=== PATIENT | female | born 1960 | race African-American/Black ===

== ENCOUNTER 2017-02-13 20:22 | Emergency (ER) | payer MEDICAID ==
[2017-02-13 20:53] LABS: BASOPHILS 0.2 % (0-2); EOSINOPHILS 4.3 % (0-7); HEMATOCRIT 38.8 % (36.0-48.0); HEMOGLOBIN 12.7 g/dL (12-16); IMMATURE GRANULOCYTES 0.2 % (0-5); LYMPHOCYTES 44.5 % (15-50); MCH 27.4 pg (26.0-34.0); MCHC 32.7 g/dL (31.0-37.0); MCV 83.6 fL (80.0-100.0); MEAN PLATELET VOLUME 9.4 fL (7.4-10.4); MONOCYTES 7.6 % (2-11); NEUTROPHILS 43.2 % (40-80); PLATELET COUNT 231 10x3/uL (130-400); RBC 4.64 10x6/uL (4.00-5.40); RDW 12.8 % (11.5-14.5); WBC 4.5 10x3/uL (4.8-10.8)
[2017-02-13 21:10] LABS: ALBUMIN 3.7 g/dL (3.4-5.0); ALKALINE PHOSPHATASE 87 U/L (46-116); ALT (SGPT) 29 U/L (10-68); CALC OSMOLALITY 276 mosm/kg (275-300); CALCIUM 8.9 mg/dL (8.5-10.1); CARBON DIOXIDE 29.9 mmol/L (21.0-32.0); CHLORIDE - SERUM 105 mmol/L (98-107); CREATININE - SERUM 0.9 mg/dL (0.6-1.3); GLUCOSE 93 mg/dL (74-106); POTASSIUM - SERUM 3.9 mmol/L (3.5-5.1); PROTEIN - SERUM 7.2 g/dL (6.4-8.2); SODIUM 139 mmol/L (136-145); UREA NITROGEN 11 mg/dL (7-18); eGFR NON AFRICAN AMERICAN 69 mL/min (90-120)
[2017-02-13 21:21] LABS: CREATINE KINASE 85 UL (21-215); TROPONIN-I < 0.017 ng/mL (0.000-0.060)
[2017-02-14 00:31] LABS: CREATINE KINASE 79 UL (21-215); TROPONIN-I < 0.017 ng/mL (0.000-0.060)
== END 2017-02-14 01:15 | disposition home or self-care (01) ==
LOC: D.ER 20:22
PROVIDERS: Family Medicine; Nurse Practitioner Acute Care
DX: R09.1 Pleurisy (principal)

== ENCOUNTER 2019-08-20 10:37 | Emergency (ER) | payer SELFPAY ==
[~2019-08-20] VITALS: Ht 152.4 cm; Wt 77.3 kg
[2019-08-20 10:45] VITALS: BP 126/79; Ht 152.4 cm; Wt 77.3 kg
[2019-08-20] MEDS ORDERED: SUMATRIPTAN SUC25 MG PO (10:46)
[2019-08-20] MEDS ORDERED: IMITREX50 MG PO (10:58)
== END 2019-08-20 11:40 | disposition home or self-care (01) ==
LOC: D.ER 10:37
DX: G43.909 Migraine, unspecified, not intractable, without status migrainosus (principal)

== ENCOUNTER 2019-12-27 15:30 | Emergency (ER) | payer MEDICAID ==
[~2019-12-27] VITALS: Ht 152.4 cm; Wt 82.3 kg
[~2019-12-27 15:30] MED LIST: IMITREX50 MG PO; SUMATRIPTAN SUC25 MG PO
[2019-12-27 15:42] VITALS: Ht 152.4 cm; Wt 82.3 kg
[2019-12-27 16:04] LABS: BASOPHILS 0.2 % (0-2); EOSINOPHILS 4.5 % (0-7); HEMATOCRIT 43.3 % (36.0-48.0); HEMOGLOBIN 14.1 g/dL (12-16); LYMPHOCYTES 40.9 % (15-50); MCH 26.9 pg (26.0-34.0); MCHC 32.6 g/dL (31.0-37.0); MCV 82.5 fL (80.0-100.0); MEAN PLATELET VOLUME 9.4 fL (7.4-10.4); MONOCYTES 7.8 % (2-11); NEUTROPHILS 46.6 % (40-80); PLATELET COUNT 276 10x3/uL (130-400); RBC 5.25 10x6/uL (4.00-5.40); RDW 13.3 % (11.5-14.5); WBC 5.5 10x3/uL (4.8-10.8)
[2019-12-27 16:14] LABS: APTT 26.9 SECONDS (22.8-39.4); INR 0.93 (0.85-1.17); PROTIME 12.4 SECONDS (11.6-15.0)
[2019-12-27 16:24] LABS: CALC OSMOLALITY 278 mosm/kg (275-300); CALCIUM 8.7 mg/dL (8.5-10.1); CARBON DIOXIDE 30.7 mmol/L (21.0-32.0); CHLORIDE - SERUM 103 mmol/L (98-107); CREATININE - SERUM 1.1 mg/dL (0.6-1.3); GLUCOSE 82 mg/dL (74-106); POTASSIUM - SERUM 3.9 mmol/L (3.5-5.1); SODIUM 139 mmol/L (136-145); UREA NITROGEN 18 mg/dL (7-18); eGFR NON AFRICAN AMERICAN 54 mL/min (90-120)
[2019-12-27 16:41] LABS: ALBUMIN 4.1 g/dL (3.4-5.0); ALKALINE PHOSPHATASE 92 U/L (30-120); ALT (SGPT) 28 U/L (10-68); BILIRUBIN - TOTAL 0.31 mg/dL (0.2-1.3); CKMB 1.1 U/L (0.0-3.6); CREATINE KINASE 132 UL (21-215); MAGNESIUM - SERUM 2.1 mg/dL (1.8-2.4); PROTEIN - SERUM 7.9 g/dL (6.4-8.2)
[2019-12-27 16:56] LABS: TROPONIN-I < 0.017 ng/mL (0.000-0.060)
[2019-12-27 18:00] VITALS: BP 123/76
== END 2019-12-27 18:00 | disposition home or self-care (01) ==
LOC: D.ER 15:30
PROVIDERS: Emergency Medicine
DX: K80.20 Calculus of gallbladder without cholecystitis without obstruction (principal); R07.9 Chest pain, unspecified

== ENCOUNTER 2020-09-01 11:45 | Emergency (ER) | payer MEDICAID ==
[~2020-09-01] VITALS: Ht 152.4 cm; Wt 81.8 kg
[~2020-09-01 11:45] MED LIST changes: +NAPROSYN500 MG PO; +TYLENOL #4 W/CO1 TAB PO
[2020-09-01 11:47] VITALS: BP 132/85; Ht 152.4 cm; Wt 81.8 kg
[2020-09-01 12:14] LABS: BASOPHILS 0.2 % (0-2); EOSINOPHILS 3.1 % (0-7); HEMATOCRIT 41.2 % (36.0-48.0); HEMOGLOBIN 13.2 g/dL (12-16); LYMPHOCYTES 39.9 % (15-50); MCH 26.2 pg (26.0-34.0); MCV 81.7 fL (80.0-100.0); MEAN PLATELET VOLUME 9.6 fL (7.4-10.4); MONOCYTES 8.4 % (2-11); NEUTROPHIL ABS# 2.18 10x3/uL (1.56-6.13); NEUTROPHILS 48.4 % (40-80); PLATELET COUNT 310 10x3/uL (130-400); RBC 5.04 10x6/uL (4.00-5.40); RDW 13.3 % (11.5-14.5); WBC 4.5 10x3/uL (4.8-10.8)
[2020-09-01 12:25] LABS: APTT 27.1 SECONDS (22.8-39.4); INR 1.04 (0.85-1.17); PROTIME 12.5 SECONDS (11.6-15.0)
[2020-09-01 12:30] LABS: CALC OSMOLALITY 279 mosm/kg (275-300); CARBON DIOXIDE 30.5 mmol/L (21.0-32.0); CHLORIDE - SERUM 105 mmol/L (98-107); GLUCOSE 85 mg/dL (74-106); POTASSIUM - SERUM 4.2 mmol/L (3.5-5.1); SODIUM 142 mmol/L (136-145); UREA NITROGEN 8 mg/dL (7-18); eGFR NON AFRICAN AMERICAN 60 mL/min (90-120)
[2020-09-01] MEDS ORDERED: REGLAN10 MG PO (12:36)
[2020-09-01] MEDS ORDERED: PROTONIX40 MG PO (12:36)
[2020-09-01 12:46] LABS: ALBUMIN 3.9 g/dL (3.4-5.0); ALKALINE PHOSPHATASE 96 U/L (30-120); ALT (SGPT) 25 U/L (10-68); BILIRUBIN - TOTAL 0.23 mg/dL (0.2-1.3); CKMB 0.6 U/L (0.0-3.6); CREATINE KINASE 105 UL (21-215); PROTEIN - SERUM 7.3 g/dL (6.4-8.2); TROPONIN-I < 0.017 ng/mL (0.000-0.060)
== END 2020-09-01 15:40 | disposition home or self-care (01) ==
LOC: D.ER 11:45
PROVIDERS: Emergency Medicine
DX: K21.9 Gastro-esophageal reflux disease without esophagitis (principal); K27.9 Peptic ulcer, site unspecified, unspecified as acute or chronic, without hemorrhage or perforation

== ENCOUNTER 2020-09-01 17:22 | Emergency (ER) | payer MEDICAID ==
[2020-09-01 11:47] VITALS: BMI 35.2
[~2020-09-01 17:22] MED LIST changes: +PROTONIX40 MG PO; +REGLAN10 MG PO
== END 2020-09-01 17:30 | disposition left against medical advice (07) ==
LOC: D.ER 17:22
DX: R07.9 Chest pain, unspecified (principal)

== ENCOUNTER 2020-09-17 09:13 | Emergency (ER) | payer MEDICAID ==
[~2020-09-17] VITALS: Ht 152.4 cm; Wt 84.1 kg
[2020-09-17 09:14] VITALS: Ht 152.4 cm; Wt 84.1 kg
[2020-09-17 09:41] LABS: BASOPHILS 0.2 % (0-2); EOSINOPHILS 0.5 % (0-7); HEMATOCRIT 39.6 % (36.0-48.0); HEMOGLOBIN 12.8 g/dL (12-16); IMMATURE GRANULOCYTES 0.2 % (0-5); LYMPHOCYTE ABS# 1.01 10x3/uL (1.18-3.74); LYMPHOCYTES 16.7 % (15-50); MCH 26.3 pg (26.0-34.0); MCHC 32.3 g/dL (31.0-37.0); MCV 81.3 fL (80.0-100.0); MEAN PLATELET VOLUME 9.3 fL (7.4-10.4); MONOCYTES 3.6 % (2-11); NEUTROPHIL ABS# 4.75 10x3/uL (1.56-6.13); NEUTROPHILS 78.8 % (40-80); PLATELET COUNT 314 10x3/uL (130-400); RBC 4.87 10x6/uL (4.00-5.40); RDW 13.5 % (11.5-14.5)
[2020-09-17 09:57] LABS: CALC OSMOLALITY 279 mosm/kg (275-300); CARBON DIOXIDE 27.9 mmol/L (21.0-32.0); CHLORIDE - SERUM 104 mmol/L (98-107); CREATININE - SERUM 1.1 mg/dL (0.6-1.3); GLUCOSE 142 mg/dL (74-106); SODIUM 140 mmol/L (136-145); UREA NITROGEN 10 mg/dL (7-18); eGFR NON AFRICAN AMERICAN 54 mL/min (90-120)
[2020-09-17 10:01] LABS: ALBUMIN 3.9 g/dL (3.4-5.0); ALKALINE PHOSPHATASE 90 U/L (30-120); ALT (SGPT) 27 U/L (10-68); AMYLASE - SERUM 81 U/L (25-115); BILIRUBIN - TOTAL 0.22 mg/dL (0.2-1.3); LIPASE 50 U/L (73-393); PROTEIN - SERUM 7.6 g/dL (6.4-8.2); TROPONIN-I < 0.017 ng/mL (0.000-0.060)
[2020-09-17 10:23] LABS: BACTERIA FEW HPF (NONE SEEN); BILIRUBIN NEGATIVE (NEGATIVE); KETONE NEGATIVE (NEGATIVE); NITRITE NEGATIVE (NEGATIVE); UROBILINOGEN NORMAL mg/dL (< 2); WHITE CELLS - URINE RARE HPF (0-4)
[2020-09-17 10:28] LABS: SQUAMOUS EPITHELIAL RARE HPF (0-4)
[2020-09-17] MEDS ORDERED: IBUPROFEN800 MG PO (11:59)
[2020-09-17] MEDS ORDERED: ACETAMINOPHEN500 M1 PO (11:59)
[2020-09-17] MEDS ORDERED: CYCLOBENZAPRINE10 MG PO (11:59)
[2020-09-17 12:46] VITALS: BP 156/85
== END 2020-09-17 12:47 | disposition home or self-care (01) ==
LOC: D.ER 09:13
PROVIDERS: Family Medicine
DX: R10.9 Unspecified abdominal pain (principal); M54.5 Low back pain; G89.29 Other chronic pain; K21.9 Gastro-esophageal reflux disease without esophagitis

== ENCOUNTER 2020-09-29 20:20 | Emergency (ER) | payer MEDICAID ==
[~2020-09-29] VITALS: Ht 152.4 cm; Wt 84.1 kg
[~2020-09-29 20:20] MED LIST changes: +ACETAMINOPHEN500 M1 PO; +CYCLOBENZAPRINE10 MG PO; +IBUPROFEN800 MG PO
[2020-09-29 20:25] VITALS: Ht 152.4 cm; Wt 84.1 kg
[2020-09-29] MEDS ORDERED: PREDNISONE20 MG PO (21:32)
[2020-09-29 22:00] VITALS: BP 149/78
== END 2020-09-29 22:21 | disposition home or self-care (01) ==
LOC: D.ER 20:20
DX: M54.5 Low back pain (principal); K21.9 Gastro-esophageal reflux disease without esophagitis

== ENCOUNTER 2020-10-07 15:57 | Emergency (ER) | payer MEDICAID ==
[~2020-10-07] VITALS: Ht 152.4 cm; Wt 81.8 kg
[~2020-10-07 15:57] MED LIST changes: +PREDNISONE20 MG PO
[2020-10-07 16:22] VITALS: Ht 152.4 cm; Wt 81.8 kg
[2020-10-07 17:27] LABS: BASOPHILS 0.5 % (0-2); EOSINOPHILS 4.6 % (0-7); HEMATOCRIT 40.1 % (36.0-48.0); HEMOGLOBIN 13.3 g/dL (12-16); MCH 26.5 pg (26.0-34.0); MCHC 33.2 g/dL (31.0-37.0); MCV 79.9 fL (80.0-100.0); MEAN PLATELET VOLUME 7.5 fL (7.4-10.4); MONOCYTES 10.8 % (2-11); NEUTROPHILS 55.1 % (40-80); PLATELET COUNT 295 10x3/uL (130-400); RBC 5.01 10x6/uL (4.00-5.40); WBC 5.7 10x3/uL (4.8-10.8)
[2020-10-07 17:35] LABS: ANION GAP 9.2 mmol/L (8-16); CALCIUM 8.8 mg/dL (8.5-10.1); CARBON DIOXIDE 30.1 mmol/L (21.0-32.0); CREATININE - SERUM 1.2 mg/dL (0.6-1.3); POTASSIUM - SERUM 4.3 mmol/L (3.5-5.1)
[2020-10-07 17:39] LABS: ALBUMIN 3.8 g/dL (3.4-5.0); BILIRUBIN - TOTAL 0.26 mg/dL (0.2-1.3); PROTEIN - SERUM 7.3 g/dL (6.4-8.2)
[2020-10-07] MEDS ORDERED: CHRONULAC30 ML PO (18:23)
[2020-10-07] MEDS ORDERED: METHOCARBAMOL500 MG PO (18:23)
[2020-10-07] MEDS ORDERED: ARTHROTEC 501 TAB.EC PO (18:23)
[2020-10-07 18:53] LABS: BILIRUBIN NEGATIVE (NEGATIVE); KETONE NEGATIVE (NEGATIVE); NITRITE NEGATIVE (NEGATIVE); UROBILINOGEN NORMAL mg/dL (< 2)
[2020-10-07 18:55] LABS: BACTERIA FEW HPF (NONE SEEN); SQUAMOUS EPITHELIAL 0-5 HPF (0-4); WHITE CELLS - URINE 0-5 HPF (0-4)
[2020-10-07 19:27] VITALS: BP 157/89
== END 2020-10-07 19:26 | disposition home or self-care (01) ==
LOC: D.ER 15:57
PROVIDERS: Family Medicine
DX: K29.70 Gastritis, unspecified, without bleeding (principal); M54.9 Dorsalgia, unspecified; K59.00 Constipation, unspecified; R10.13 Epigastric pain; K21.9 Gastro-esophageal reflux disease without esophagitis

== ENCOUNTER 2020-10-12 23:11 | Emergency (ER) | payer MEDICAID ==
[~2020-10-12] VITALS: Ht 152.4 cm; Wt 83.9 kg
[~2020-10-12 23:11] MED LIST changes: +ARTHROTEC 501 TAB.EC PO; +CHRONULAC30 ML PO; +METHOCARBAMOL500 MG PO
[2020-10-12 23:12] VITALS: Ht 152.4 cm; Wt 83.9 kg
[2020-10-13 00:47] LABS: BASOPHILS 0.5 % (0-2); EOSINOPHILS 2.8 % (0-7); HEMOGLOBIN 12.7 g/dL (12-16); MCH 26.1 pg (26.0-34.0); MCHC 32.6 g/dL (31.0-37.0); MCV 80.2 fL (80.0-100.0); MEAN PLATELET VOLUME 7.6 fL (7.4-10.4); MONOCYTES 5.7 % (2-11); PLATELET COUNT 293 10x3/uL (130-400); RBC 4.86 10x6/uL (4.00-5.40); RDW 13.7 % (11.5-14.5); WBC 7.5 10x3/uL (4.8-10.8)
[2020-10-13 00:50] LABS: CALCIUM 8.9 mg/dL (8.5-10.1); CARBON DIOXIDE 29.3 mmol/L (21.0-32.0); CREATININE - SERUM 1.1 mg/dL (0.6-1.3); POTASSIUM - SERUM 4.3 mmol/L (3.5-5.1)
[2020-10-13 00:56] LABS: ALBUMIN 3.7 g/dL (3.4-5.0); BILIRUBIN - TOTAL 0.33 mg/dL (0.2-1.3); PROTEIN - SERUM 7.2 g/dL (6.4-8.2)
[2020-10-13 03:43] VITALS: BP 117/58
== END 2020-10-13 03:44 | disposition home or self-care (01) ==
LOC: D.ER 23:11
PROVIDERS: Student in an Organized Health Care Education/Training Program
DX: M54.9 Dorsalgia, unspecified (principal); K21.9 Gastro-esophageal reflux disease without esophagitis

== ENCOUNTER 2020-10-13 19:02 | Emergency (ER) | payer MEDICAID ==
[~2020-10-13] VITALS: Ht 152.4 cm; Wt 83.9 kg
[2020-10-13 19:37] VITALS: BP 132/88; Ht 152.4 cm; Wt 83.9 kg
== END 2020-10-14 00:54 | disposition left against medical advice (07) ==
LOC: D.ER 19:02
DX: M54.9 Dorsalgia, unspecified (principal); G89.29 Other chronic pain; K21.9 Gastro-esophageal reflux disease without esophagitis